=== PATIENT | female | born 1955 | race Caucasian/White ===

== ENCOUNTER 2024-02-17 06:15 | Inpatient (IN) ==
[~2024-02-17 06:15] MED LIST: Ertapenem 1 GM in NS 0.9% 50 ML BAG IVPB SCH; Naloxone 0.4 mg VIAL 0.4 mg/ml 1 ml VIAL IV PRN; Ondansetron 4 mg VIAL 2 MG/ML 2 ml VIAL IV PRN
[2024-02-17] MEDS ORDERED: Heparin 5000 UNITS/ML 1 mL VIAL ONE (06:50)
[2024-02-17] MEDS ORDERED: Propofol 10 MG/ML 20 ML BTL ONE (07:07)
[2024-02-17] MEDS ORDERED: Lidocaine 2% PF 5 ML VIAL ONE (07:07)
[2024-02-17] MEDS ORDERED: fentaNYL 100 mcg/2 ml 50 MCG/ML VIAL ONE ×2 (07:11→11:55)
[2024-02-17] MEDS ORDERED: Midazolam 2 mg/2 ml VIAL 1 mg/ml 2 ml VIAL (2 mg) ONE (07:11)
[2024-02-17] MEDS ORDERED: Bupivacaine 0.25% EPI 200,000 30 ML SDV ONE (07:13)
[2024-02-17] MEDS ORDERED: HYDROmorphone 0.5 MG/0.5 ML SYRINGE ONE ×2 (08:40→09:24)
[2024-02-17] MEDS ORDERED: Rocuronium 50 mg VIAL 10 mg/ml 5 ml VIAL (50 mg) ONE (09:08)
[2024-02-17] MEDS: fentaNYL 100 mcg/2 ml 50 MCG/ML VIAL IV PRN (11:58)
[2024-02-17] MEDS ORDERED: HYDROmorphone 0.5 MG/0.5 ML SYRINGE IV SLOW PU PRN (12:06)
[2024-02-17] MEDS ORDERED: HYDROmorphone 1 MG/1 ML SYRINGE IV SLOW PU PRN (12:06)
[2024-02-17] MEDS ORDERED: Dextrose 50% Syringe 50 ml 25 GM/50 ML SYRINGE IV PUSH PRN (12:10)
[2024-02-17] MEDS: Buffered Lidocaine 1% SYRIN 1 ml INTRADERM ONE (12:54)
[2024-02-17] MEDS: Lactated Ringers 1000 ml BAG 1,000 ML IV SCH (12:54)
[2024-02-17] MEDS: Acetaminophen IV 1 GM/100ML 1,000 MG/100 ML BAG IV SCH (14:28)
[2024-02-17] MEDS: Ondansetron 4 mg VIAL 2 MG/ML 2 ml VIAL IV PRN (16:19)
[2024-02-18] MEDS: Heparin 5000 UNITS/ML 1 mL VIAL SUBCUT SCH (05:31)
[2024-02-18 05:57] LABS: ABS Lymphocytes 1.2 10^3/uL (1.0-4.8); ABS Monocytes 0.7 10^3/uL (0.0-0.9); ABS Nucleated RBC 0.01 10^3/ul; Eosinophil % 0.2 %; Hematocrit 31.3 % (35-45); Hemoglobin 10.7 g/dL (11.5-14.3); Lymphocyte % 13.9 %; Mean Corpuscular Hemoglobin 27.3 pg (27-33); Mean Corpuscular Hgb Conc 34.1 g/dL (31-36); Mean Corpuscular Volume 79.9 fL (80-97); Mean Platelet Volume 9.9 fL (7.5-11.2); Nucleated Red Blood Cells % 0.1 %/100WBC (0.0-0.8); Platelet Count 180 10^3/uL (150-450); Red Blood Count 3.92 10^6/uL (3.63-4.92); Red Cell Distribution Width 15.6 % (12-17)
[2024-02-18 06:17] LABS: Calcium 8.5 mg/dL (8.6-10.3); Creatinine, Serum 0.71 mg/dL (0.51-0.95); Potassium 3.2 mmol/L (3.5-5.0); eGFR CKD-EPI 91.4 (>60)
[2024-02-18] MEDS: KCL 10 MEQ/50 ML IVPREMIX 10 MEQ/50 ML BAG IV SCH (10:28)
[2024-02-19 13:24] VITALS: BP 126/73
== END 2024-02-19 15:55 | disposition home or self-care (01) | DRG 221 ==
LOC: AA 06:15 → EDSTATUS 07:30 → SSU 11:58
PROVIDERS: ADMIT Surgery; ATTEND Surgery